=== PATIENT | male | born 1955 | race Caucasian/White ===

== ENCOUNTER 2019-03-05 00:41 | Inpatient (IN) ==
[2019-03-05] MEDS ORDERED: ONDANSETRON 4 MG/2 ML VIAL IV PRN (05:00)
[2019-03-05] MEDS ORDERED: traZODone 50 MG TABLET PO PRN (05:00)
[2019-03-05] MEDS ORDERED: ACETAMINOPHEN 325 MG TABLET PO PRN (05:00)
[2019-03-05] MEDS ORDERED: MORPHINE 4 MG/1 ML VIAL IV PRN (05:00)
[2019-03-05] MEDS ORDERED: ALBUTEROL/IPRATROPIUM 3 ML NEB RESP TX PRN (05:27)
[2019-03-05] MEDS: SODIUM CHLORIDE 0.9% 1,000 ML IV SCH ×2 (05:30→23:05)
[2019-03-05 05:35] LABS: Basophils % 0.3 % (0.0-0.8); Eosinophils % 0.1 % (0.00-10.9); Hematocrit 44.4 VOL% (42.0-52.0); Hemoglobin 14.7 GM/DL (14.0-18.0); Immature Granulocytes % 0.4 %; Immature Granulocytes Absolute 0.06 #; Lymphocytes # 2.6 10*3/uL (1.4-4.0); Lymphocytes % 18.3 % (21.2-54.2); Mean Corpuscular HGB Conc 33.1 GM/DL (32-36); Mean Corpuscular Volume 89.5 FL (87-102); Mean Platelet Volume 10.2 FL (9.6-12.0); Neutrophils % 73.9 % (38.7-73.9); Platelet Count 223 T/CUMM (130-400); Red Blood Count 4.96 MC/CUMM (3.8-5.5); Red Cell Distribution Width 13.6 % (9.3-17.3); White Blood Count 14.1 T/CUMM (4-12)
[2019-03-05 05:57] LABS: Albumin 3.7 G/DL (3.4-5.0); Bilirubin,Total 0.8 MG/DL (0.2-1.0); Calcium 9.3 MG/DL (8.5-10.1); Thyroid Stimulating Hormone 1.03 uIU/ml (0.358-3.74); Total Protein 7.2 G/DL (6.4-8.3)
[2019-03-05 05:58] LABS: Hematocrit 43.2 VOL% (42.0-52.0); Hemoglobin 14.5 GM/DL (14.0-18.0)
[2019-03-05] MEDS: PIPERACILLIN/TAZOBACTAM 3,375 MG in SODIUM CHLORIDE 0.9% 100 ML IV SCH ×3 (06:07→21:32)
[2019-03-05] MEDS ORDERED: BISACODYL 5 MG TABLET PO PRN (09:08)
[2019-03-05] MEDS ORDERED: MAGNESIUM HYDROXIDE SUSP 30 ML UDCUP PO PRN (09:08)
[2019-03-05] MEDS: POTASSIUM CHLORIDE 20 MEQ TABLET PO PRN ×2 (11:35→14:40)
[2019-03-05 11:36] LABS: Hematocrit 41.7 VOL% (42.0-52.0)
[2019-03-05] MEDS: PANTOPRAZOLE 40 MG VIAL IV SCH (11:38)
[2019-03-05] MEDS ORDERED: TUBERCULIN SKIN TEST 0.1 ML SYRINGE INTRADERM ONE (13:10)
[2019-03-05] MEDS: GABAPENTIN 300 MG CAPSULE PO SCH ×2 (14:39→21:00)
[2019-03-05 18:05] LABS: Hematocrit 40.8 VOL% (42.0-52.0); Hemoglobin 13.6 GM/DL (14.0-18.0)
[2019-03-05] MEDS: MORPHINE ER 30 MG TABLET PO SCH (21:00)
[2019-03-05] MEDS: FAMOTIDINE 20 MG TABLET PO SCH (21:00)
[2019-03-05] MEDS: levETIRAcetam 500 MG TABLET PO SCH (21:00)
[2019-03-06 01:00] LABS: Hemoglobin 13.4 GM/DL (14.0-18.0)
[2019-03-06] MEDS: SODIUM CHLORIDE 0.9% 1,000 ML IV SCH ×3 (03:36→22:51)
[2019-03-06] MEDS: PIPERACILLIN/TAZOBACTAM 3,375 MG in SODIUM CHLORIDE 0.9% 100 ML IV SCH ×3 (05:07→22:50)
[2019-03-06 05:24] LABS: Basophils # 0.1 10*3/uL (0.0-0.2); Basophils % 0.6 % (0.0-0.8); Eosinophils % 0.4 % (0.00-10.9); Hematocrit 40.1 VOL% (42.0-52.0); Hemoglobin 13.2 GM/DL (14.0-18.0); Immature Granulocytes % 0.5 %; Immature Granulocytes Absolute 0.05 #; Lymphocytes # 2.5 10*3/uL (1.4-4.0); Lymphocytes % 23.2 % (21.2-54.2); Mean Corpuscular HGB Conc 32.9 GM/DL (32-36); Mean Corpuscular Volume 90.5 FL (87-102); Mean Platelet Volume 10.1 FL (9.6-12.0); Monocytes % 6.1 % (1.7-12.7); Neutrophils % 69.2 % (38.7-73.9); Platelet Count 185 T/CUMM (130-400); Red Blood Count 4.43 MC/CUMM (3.8-5.5); Red Cell Distribution Width 13.6 % (9.3-17.3); White Blood Count 10.8 T/CUMM (4-12)
[2019-03-06 05:44] LABS: Calcium 8.7 MG/DL (8.5-10.1); Osmolality,Calculated 291.6 MOS/KG (273-304)
[2019-03-06 06:24] LABS: Apearance,Urine CLEAR (Clear); Bilirubin,Urine Negative (Negative); Blood, Urine Moderate mg/dL (Negative); Glucose,Urine (UA) Negative (Negative); Hyaline Casts,Urine 4 /LPF (0-3); Ketones,Urine 20 mg/dL (Negative); Mucus,Urine Occasional /LPF (Occasional); Nitrite,Urine Negative (Negative); Protein,Urine 30 MG/DL; RBC,Urine 11 /HPF (0-4); Squamous Epithelial Cell,Urine Occasional /HPF (0-10); Urine Color Yellow (Yellow); Urine Specific Gravity > 1.060 (1.001-1.035); Urine Urobilinogen < 2.0 EU/DL (0.2-1.0); WBC,Urine 5 /HPF (0-6)
[2019-03-06] MEDS ORDERED: LACTATED RINGERS 1,000 ML IV SCH (08:00)
[2019-03-06] MEDS ORDERED: LIDOCAINE 2% 5 ML VIAL ONE (10:00)
[2019-03-06] MEDS ORDERED: PROPOFOL 200 MG/20 ML VIAL IV ONE (10:00)
[2019-03-06] MEDS: levETIRAcetam 500 MG TABLET PO SCH ×2 (10:30→21:09)
[2019-03-06] MEDS: GABAPENTIN 300 MG CAPSULE PO SCH ×3 (10:31→21:09)
[2019-03-06] MEDS: MORPHINE ER 30 MG TABLET PO SCH ×2 (10:31→21:10)
[2019-03-06] MEDS: CITALOPRAM 40 MG TABLET PO SCH (10:31)
[2019-03-06] MEDS: ARIPiprazole 5 MG TABLET PO SCH (10:31)
[2019-03-06] MEDS: PANTOPRAZOLE 40 MG VIAL IV SCH (10:36)
[2019-03-06] MEDS: NICOTINE 14 MG/24 HR PATCH TRANSDERM SCH (16:11)
[2019-03-06] MEDS: CLOPIDOGREL 75 MG TABLET PO SCH (16:11)
[2019-03-06] MEDS: FAMOTIDINE 20 MG TABLET PO SCH (21:09)
[2019-03-06] MEDS: PANTOPRAZOLE 40 MG TABLET PO SCH (21:10)
[2019-03-07 05:28] LABS: Basophils # 0.1 10*3/uL (0.0-0.2); Basophils % 1.1 % (0.0-0.8); Eosinophils # 0.1 10*3/uL (0.0-0.87); Eosinophils % 0.9 % (0.00-10.9); Hematocrit 33.7 VOL% (42.0-52.0); Immature Granulocytes % 0.4 %; Immature Granulocytes Absolute 0.02 #; Lymphocytes # 2.2 10*3/uL (1.4-4.0); Lymphocytes % 41.8 % (21.2-54.2); Mean Corpuscular HGB Conc 32.3 GM/DL (32-36); Mean Corpuscular Volume 91.3 FL (87-102); Mean Platelet Volume 10.1 FL (9.6-12.0); Monocytes % 5.5 % (1.7-12.7); Neutrophils % 50.3 % (38.7-73.9); Red Blood Count 3.69 MC/CUMM (3.8-5.5); Red Cell Distribution Width 13.6 % (9.3-17.3)
[2019-03-07] MEDS: PIPERACILLIN/TAZOBACTAM 3,375 MG in SODIUM CHLORIDE 0.9% 100 ML IV SCH ×3 (05:35→21:29)
[2019-03-07 05:38] LABS: Hemoglobin 10.9 GM/DL (14.0-18.0); White Blood Count 5.3 T/CUMM (4-12)
[2019-03-07 05:39] LABS: Platelet Count 125 T/CUMM (130-400)
[2019-03-07 05:47] LABS: Calcium 8.1 MG/DL (8.5-10.1); Osmolality,Calculated 295.3 MOS/KG (273-304)
[2019-03-07] MEDS: POTASSIUM CHLORIDE 20 MEQ TABLET PO PRN ×2 (06:04→10:10)
[2019-03-07] MEDS: PANTOPRAZOLE 40 MG TABLET PO SCH ×2 (10:09→20:36)
[2019-03-07] MEDS: CITALOPRAM 40 MG TABLET PO SCH (10:10)
[2019-03-07] MEDS: levETIRAcetam 500 MG TABLET PO SCH ×2 (10:10→20:37)
[2019-03-07] MEDS: GABAPENTIN 300 MG CAPSULE PO SCH ×3 (10:10→20:36)
[2019-03-07] MEDS: MORPHINE ER 30 MG TABLET PO SCH ×2 (10:10→20:37)
[2019-03-07] MEDS: CLOPIDOGREL 75 MG TABLET PO SCH (10:10)
[2019-03-07] MEDS: SODIUM CHLORIDE 0.9% 1,000 ML IV SCH ×3 (10:11→21:20)
[2019-03-07] MEDS: NICOTINE 14 MG/24 HR PATCH TRANSDERM SCH (10:11)
[2019-03-07] MEDS: ARIPiprazole 5 MG TABLET PO SCH (10:21)
[2019-03-07] MEDS ORDERED: TUBERCULIN SKIN TEST 0.1 ML SYRINGE INTRADERM ONE (13:30)
[2019-03-07] MEDS: POTASSIUM CHLORIDE RIDER 10 MEQ in PREMIX 1 EACH IV PRN ×4 (14:10→18:29)
[2019-03-07] MEDS: FAMOTIDINE 20 MG TABLET PO SCH (20:37)
[2019-03-08 01:32] LABS: CDT Result Negative (Negative); CDT Specimen Source STOOL
[2019-03-08 05:36] LABS: Basophils % 0.7 % (0.0-0.8); Eosinophils # 0.2 10*3/uL (0.0-0.87); Eosinophils % 3.9 % (0.00-10.9); Hematocrit 35.1 VOL% (42.0-52.0); Hemoglobin 11.3 GM/DL (14.0-18.0); Immature Granulocytes % 0.5 %; Immature Granulocytes Absolute 0.02 #; Lymphocytes # 1.9 10*3/uL (1.4-4.0); Lymphocytes % 46.1 % (21.2-54.2); Mean Corpuscular HGB Conc 32.2 GM/DL (32-36); Mean Corpuscular Volume 91.4 FL (87-102); Mean Platelet Volume 10.8 FL (9.6-12.0); Monocytes % 5.2 % (1.7-12.7); Neutrophils % 43.6 % (38.7-73.9); Platelet Count 122 T/CUMM (130-400); Red Blood Count 3.84 MC/CUMM (3.8-5.5); Red Cell Distribution Width 13.6 % (9.3-17.3); White Blood Count 4.1 T/CUMM (4-12)
[2019-03-08] MEDS: PIPERACILLIN/TAZOBACTAM 3,375 MG in SODIUM CHLORIDE 0.9% 100 ML IV SCH (05:50)
[2019-03-08 08:34] VITALS: BP 133/62
[2019-03-08] MEDS: CITALOPRAM 40 MG TABLET PO SCH (08:51)
[2019-03-08] MEDS: ARIPiprazole 5 MG TABLET PO SCH (08:51)
[2019-03-08] MEDS: NICOTINE 14 MG/24 HR PATCH TRANSDERM SCH (08:51)
[2019-03-08] MEDS: GABAPENTIN 300 MG CAPSULE PO SCH (08:51)
[2019-03-08] MEDS: MORPHINE ER 30 MG TABLET PO SCH (08:51)
[2019-03-08] MEDS: CLOPIDOGREL 75 MG TABLET PO SCH (08:52)
[2019-03-08] MEDS: PANTOPRAZOLE 40 MG TABLET PO SCH (08:52)
[2019-03-08] MEDS: levETIRAcetam 500 MG TABLET PO SCH (08:52)
== END 2019-03-08 12:14 | DRG 378 ==
LOC: N.5E 02:10 → SUATTDRO 02:10
PROVIDERS: ADMIT Internal Medicine; ATTEND Internal Medicine Nephrology

== ENCOUNTER 2019-03-09 17:24 | Inpatient (IN) ==
[2019-03-09 18:11] LABS: Basophils % 0.4 % (0.0-0.8); Eosinophils % 0.4 % (0.00-10.9); Hematocrit 45.2 VOL% (42.0-52.0); Hemoglobin 15.3 GM/DL (14.0-18.0); Immature Granulocytes % 0.4 %; Immature Granulocytes Absolute 0.04 #; Lymphocytes # 2.3 10*3/uL (1.4-4.0); Lymphocytes % 22.6 % (21.2-54.2); Mean Corpuscular HGB Conc 33.8 GM/DL (32-36); Mean Corpuscular Volume 87.1 FL (87-102); Mean Platelet Volume 10.7 FL (9.6-12.0); Monocytes % 6.7 % (1.7-12.7); Neutrophils % 69.5 % (38.7-73.9); Platelet Count 212 T/CUMM (130-400); Red Blood Count 5.19 MC/CUMM (3.8-5.5); Red Cell Distribution Width 13.4 % (9.3-17.3)
[2019-03-09] MEDS ORDERED: ONDANSETRON 4 MG/2 ML VIAL IV PRN (18:54)
[2019-03-09] MEDS ORDERED: DOCUSATE SODIUM 100 MG CAPSULE PO PRN (18:54)
[2019-03-09] MEDS ORDERED: ACETAMINOPHEN 325 MG TABLET PO PRN (18:54)
[2019-03-09] MEDS ORDERED: LACTULOSE 20 GM/30 ML UDCUP PO PRN (18:54)
[2019-03-09] MEDS ORDERED: MAGNESIUM HYDROXIDE SUSP 30 ML UDCUP PO PRN (19:00)
[2019-03-09] MEDS ORDERED: ALBUTEROL/IPRATROPIUM 3 ML NEB RESP TX PRN (19:00)
[2019-03-09] MEDS ORDERED: BISACODYL 5 MG TABLET PO PRN (19:00)
[2019-03-09 19:30] LABS: Calcium 8.5 MG/DL (8.5-10.1); Osmolality,Calculated 286.7 MOS/KG (273-304)
[2019-03-09 19:43] LABS: CKMB % 10.3 %; Troponin I 3.6 NG/ML (0.00-0.045)
[2019-03-09 23:02] LABS: CKMB % 9.2 %
[2019-03-09] MEDS: GABAPENTIN 300 MG CAPSULE PO SCH (23:19)
[2019-03-09] MEDS: MORPHINE ER 30 MG TABLET PO SCH (23:21)
[2019-03-09] MEDS: PANTOPRAZOLE 40 MG TABLET PO SCH (23:21)
[2019-03-09 23:23] LABS: Troponin I 3.02 NG/ML (0.00-0.045)
[2019-03-09] MEDS: DOXYCYCLINE HYCLATE 100 MG CAPSULE PO SCH (23:23)
[2019-03-09] MEDS: levETIRAcetam 500 MG TABLET PO SCH (23:24)
[2019-03-09] MEDS: ENOXAPARIN 60 MG/0.6 ML SYRINGE SUBCUT SCH (23:57)
[2019-03-10] MEDS ORDERED: INFLUENZA VIRUS VACCINE 0.5 ML SYRINGE IM ONE (00:13)
[2019-03-10 05:08] LABS: Basophils # 0.1 10*3/uL (0.0-0.2); Basophils % 0.5 % (0.0-0.8); Eosinophils # 0.1 10*3/uL (0.0-0.87); Eosinophils % 0.8 % (0.00-10.9); Hematocrit 45.6 VOL% (42.0-52.0); Hemoglobin 15.5 GM/DL (14.0-18.0); Immature Granulocytes % 0.4 %; Immature Granulocytes Absolute 0.04 #; Lymphocytes # 2.6 10*3/uL (1.4-4.0); Lymphocytes % 24.5 % (21.2-54.2); Mean Corpuscular Volume 87.5 FL (87-102); Mean Platelet Volume 11.1 FL (9.6-12.0); Monocytes % 7.4 % (1.7-12.7); Neutrophils % 66.4 % (38.7-73.9); Platelet Count 209 T/CUMM (130-400); Red Blood Count 5.21 MC/CUMM (3.8-5.5); Red Cell Distribution Width 13.5 % (9.3-17.3); White Blood Count 10.8 T/CUMM (4-12)
[2019-03-10 05:46] LABS: Calcium 8.5 MG/DL (8.5-10.1); Osmolality,Calculated 279.4 MOS/KG (273-304)
[2019-03-10] MEDS ORDERED: SODIUM CHLORIDE 0.9% 1,000 ML IV ONE ×2 (08:22→13:45)
[2019-03-10] MEDS: cefTRIAXone 1,000 MG in SYRINGE 1 EACH IV SCH (10:18)
[2019-03-10] MEDS: NICOTINE 21 MG/24 HR PATCH TRANSDERM SCH (10:19)
[2019-03-10] MEDS: ENOXAPARIN 60 MG/0.6 ML SYRINGE SUBCUT SCH ×2 (10:19→21:45)
[2019-03-10] MEDS: ARIPiprazole 5 MG TABLET PO SCH (10:20)
[2019-03-10] MEDS: PANTOPRAZOLE 40 MG TABLET PO SCH ×2 (10:20→21:39)
[2019-03-10] MEDS: CLOPIDOGREL 75 MG TABLET PO SCH (10:20)
[2019-03-10] MEDS: ASPIRIN EC 325 MG TABLET PO SCH (10:20)
[2019-03-10] MEDS: GABAPENTIN 300 MG CAPSULE PO SCH ×3 (10:21→21:37)
[2019-03-10] MEDS: CITALOPRAM 40 MG TABLET PO SCH (10:24)
[2019-03-10] MEDS: levETIRAcetam 500 MG TABLET PO SCH ×2 (10:26→21:39)
[2019-03-10] MEDS: DOXYCYCLINE HYCLATE 100 MG CAPSULE PO SCH ×2 (10:26→21:39)
[2019-03-10] MEDS ORDERED: LISINOPRIL 10 MG TABLET PO SCH (12:00)
[2019-03-10] MEDS: MORPHINE ER 30 MG TABLET PO SCH ×2 (13:16→21:38)
[2019-03-10] MEDS: ATORVASTATIN 40 MG TABLET PO SCH (13:20)
[2019-03-11 04:45] LABS: Basophils % 0.6 % (0.0-0.8); Eosinophils # 0.2 10*3/uL (0.0-0.87); Eosinophils % 2.3 % (0.00-10.9); Hematocrit 33.4 VOL% (42.0-52.0); Hemoglobin 11.3 GM/DL (14.0-18.0); Immature Granulocytes % 0.3 %; Immature Granulocytes Absolute 0.02 #; Lymphocytes # 2.6 10*3/uL (1.4-4.0); Mean Corpuscular HGB Conc 33.8 GM/DL (32-36); Mean Corpuscular Volume 89.5 FL (87-102); Mean Platelet Volume 10.4 FL (9.6-12.0); Monocytes % 7.8 % (1.7-12.7); Platelet Count 138 T/CUMM (130-400); Red Blood Count 3.73 MC/CUMM (3.8-5.5); Red Cell Distribution Width 13.6 % (9.3-17.3); White Blood Count 6.8 T/CUMM (4-12)
[2019-03-11 05:08] LABS: Calcium 7.7 MG/DL (8.5-10.1); Osmolality,Calculated 285.8 MOS/KG (273-304)
[2019-03-11] MEDS: NICOTINE 21 MG/24 HR PATCH TRANSDERM SCH (09:09)
[2019-03-11] MEDS: ENOXAPARIN 60 MG/0.6 ML SYRINGE SUBCUT SCH ×2 (09:09→22:11)
[2019-03-11] MEDS: cefTRIAXone 1,000 MG in SYRINGE 1 EACH IV SCH (09:10)
[2019-03-11] MEDS: GABAPENTIN 300 MG CAPSULE PO SCH ×3 (09:10→22:04)
[2019-03-11] MEDS: CITALOPRAM 40 MG TABLET PO SCH (09:11)
[2019-03-11] MEDS: MORPHINE ER 30 MG TABLET PO SCH ×2 (09:11→22:05)
[2019-03-11] MEDS: ASPIRIN EC 325 MG TABLET PO SCH (09:11)
[2019-03-11] MEDS: ATORVASTATIN 40 MG TABLET PO SCH (09:11)
[2019-03-11] MEDS: levETIRAcetam 500 MG TABLET PO SCH ×2 (09:11→22:06)
[2019-03-11] MEDS: PANTOPRAZOLE 40 MG TABLET PO SCH ×2 (09:11→22:05)
[2019-03-11] MEDS: ARIPiprazole 5 MG TABLET PO SCH (09:11)
[2019-03-11] MEDS: DOXYCYCLINE HYCLATE 100 MG CAPSULE PO SCH ×2 (09:11→22:07)
[2019-03-11] MEDS: CLOPIDOGREL 75 MG TABLET PO SCH (09:12)
[2019-03-11] MEDS ORDERED: POTASSIUM CHLORIDE 20 MEQ TABLET PO PRN (11:11)
[2019-03-11] MEDS ORDERED: POTASSIUM CHLORIDE RIDER 10 MEQ in PREMIX 1 EACH IV PRN (11:23)
[2019-03-11] MEDS ORDERED: MAGNESIUM SULF RIDER 2 GM in PREMIX 1 EACH IV PRN (11:23)
[2019-03-11] MEDS ORDERED: POTASSIUM CHLORIDE 20 MEQ TABLET PO ONE ×2 (11:51→21:00)
[2019-03-11 13:03] LABS: INR 1.1; PT Patient Result 11.9 SECS (9.6-12.2)
[2019-03-12 04:36] LABS: Basophils % 0.7 % (0.0-0.8); Eosinophils # 0.2 10*3/uL (0.0-0.87); Eosinophils % 3.2 % (0.00-10.9); Hematocrit 35.2 VOL% (42.0-52.0); Hemoglobin 11.4 GM/DL (14.0-18.0); Immature Granulocytes % 0.3 %; Immature Granulocytes Absolute 0.02 #; Lymphocytes # 1.9 10*3/uL (1.4-4.0); Lymphocytes % 32.3 % (21.2-54.2); Mean Corpuscular HGB Conc 32.4 GM/DL (32-36); Mean Corpuscular Volume 91.9 FL (87-102); Mean Platelet Volume 10.9 FL (9.6-12.0); Monocytes % 8.7 % (1.7-12.7); Neutrophils % 54.8 % (38.7-73.9); Platelet Count 148 T/CUMM (130-400); Red Blood Count 3.83 MC/CUMM (3.8-5.5); Red Cell Distribution Width 13.9 % (9.3-17.3)
[2019-03-12 05:02] LABS: Albumin 2.5 G/DL (3.4-5.0); Bilirubin,Total 0.6 MG/DL (0.2-1.0); Calcium 8.1 MG/DL (8.5-10.1); Osmolality,Calculated 285.8 MOS/KG (273-304); Total Protein 5.1 G/DL (6.4-8.3)
[2019-03-12] MEDS: NICOTINE 21 MG/24 HR PATCH TRANSDERM SCH (09:18)
[2019-03-12] MEDS: cefTRIAXone 1,000 MG in SYRINGE 1 EACH IV SCH (09:18)
[2019-03-12] MEDS: GABAPENTIN 300 MG CAPSULE PO SCH ×3 (09:19→21:38)
[2019-03-12] MEDS: ARIPiprazole 5 MG TABLET PO SCH (09:19)
[2019-03-12] MEDS: PANTOPRAZOLE 40 MG TABLET PO SCH ×2 (09:20→21:39)
[2019-03-12] MEDS: CLOPIDOGREL 75 MG TABLET PO SCH (09:20)
[2019-03-12] MEDS: levETIRAcetam 500 MG TABLET PO SCH ×2 (09:20→21:39)
[2019-03-12] MEDS: DOXYCYCLINE HYCLATE 100 MG CAPSULE PO SCH ×2 (09:20→21:38)
[2019-03-12] MEDS: ASPIRIN EC 325 MG TABLET PO SCH (09:20)
[2019-03-12] MEDS: ATORVASTATIN 40 MG TABLET PO SCH (09:20)
[2019-03-12] MEDS: MORPHINE ER 30 MG TABLET PO SCH ×2 (09:20→21:39)
[2019-03-12] MEDS: CITALOPRAM 40 MG TABLET PO SCH (09:22)
[2019-03-12] MEDS ORDERED: HEPARIN/NACL 0.9% 2 UNITS/ML 500 ML IV ONE ×3 (11:23→11:47)
[2019-03-12] MEDS ORDERED: LIDOCAINE 1% 20 ML VIAL ONE (11:23)
[2019-03-12] MEDS ORDERED: diphenhydrAMINE CAP 25 MG CAPSULE PO ONE (11:23)
[2019-03-12] MEDS ORDERED: DIAZEPAM 5 MG TABLET PO ONE (11:23)
[2019-03-12] MEDS ORDERED: fentaNYL 100 MCG/2 ML VIAL ONE (11:53)
[2019-03-12] MEDS ORDERED: MIDAZOLAM 2 MG/2 ML VIAL ONE (11:53)
[2019-03-12] MEDS ORDERED: NITROGLYCERIN DRIP 50 MG/250 ML BOTTLE IV ONE (12:02)
[2019-03-12] MEDS ORDERED: HEPARIN 5,000 UNIT/1 ML VIAL ONE (12:02)
[2019-03-12] MEDS ORDERED: SODIUM CHLORIDE 0.9% 1,000 ML IV SCH (13:00)
[2019-03-12] MEDS ORDERED: NITROGLYCERIN SL 0.4 MG TABLET SL PRN (13:36)
[2019-03-13 03:56] LABS: Basophils % 0.8 % (0.0-0.8); Eosinophils # 0.2 10*3/uL (0.0-0.87); Eosinophils % 4.1 % (0.00-10.9); Hematocrit 32.9 VOL% (42.0-52.0); Hemoglobin 10.7 GM/DL (14.0-18.0); Immature Granulocytes % 0.4 %; Immature Granulocytes Absolute 0.02 #; Lymphocytes # 1.6 10*3/uL (1.4-4.0); Lymphocytes % 31.9 % (21.2-54.2); Mean Corpuscular HGB Conc 32.5 GM/DL (32-36); Mean Corpuscular Volume 92.2 FL (87-102); Mean Platelet Volume 10.6 FL (9.6-12.0); Monocytes % 9.9 % (1.7-12.7); Neutrophils % 52.9 % (38.7-73.9); Platelet Count 150 T/CUMM (130-400); Red Blood Count 3.57 MC/CUMM (3.8-5.5); Red Cell Distribution Width 13.7 % (9.3-17.3); White Blood Count 4.9 T/CUMM (4-12)
[2019-03-13 04:25] LABS: Calcium 7.8 MG/DL (8.5-10.1)
[2019-03-13] MEDS ORDERED: MAGNESIUM SULF RIDER 4 GM in PREMIX 1 EACH IV PRN (07:21)
[2019-03-13] MEDS ORDERED: MAGNESIUM SULF RIDER 2 GM in PREMIX 1 EACH IV PRN (07:21)
[2019-03-13] MEDS: ARIPiprazole 5 MG TABLET PO SCH (08:41)
[2019-03-13] MEDS: PANTOPRAZOLE 40 MG TABLET PO SCH ×2 (08:41→21:20)
[2019-03-13] MEDS: MORPHINE ER 30 MG TABLET PO SCH (08:42)
[2019-03-13] MEDS: DOXYCYCLINE HYCLATE 100 MG CAPSULE PO SCH ×2 (08:42→21:19)
[2019-03-13] MEDS: ATORVASTATIN 40 MG TABLET PO SCH (08:43)
[2019-03-13] MEDS: cefTRIAXone 1,000 MG in SYRINGE 1 EACH IV SCH (08:43)
[2019-03-13] MEDS: levETIRAcetam 500 MG TABLET PO SCH ×2 (08:43→21:19)
[2019-03-13] MEDS: ASPIRIN EC 325 MG TABLET PO SCH (08:46)
[2019-03-13] MEDS: GABAPENTIN 300 MG CAPSULE PO SCH ×3 (09:15→21:19)
[2019-03-13] MEDS: NICOTINE 21 MG/24 HR PATCH TRANSDERM SCH (09:15)
[2019-03-13] MEDS: CITALOPRAM 40 MG TABLET PO SCH (09:15)
[2019-03-13] MEDS: MORPHINE ER 15 MG TABLET PO SCH ×2 (13:11→21:19)
[2019-03-13] MEDS: MEGESTROL 40 MG TABLET PO SCH ×2 (15:56→21:20)
[2019-03-13] MEDS: SODIUM CHLORIDE 0.9% 1,000 ML IV SCH (16:00)
[2019-03-14 06:19] LABS: Basophils % 0.6 % (0.0-0.8); Eosinophils # 0.2 10*3/uL (0.0-0.87); Eosinophils % 3.5 % (0.00-10.9); Hematocrit 34.5 VOL% (42.0-52.0); Hemoglobin 11.4 GM/DL (14.0-18.0); Immature Granulocytes % 0.2 %; Immature Granulocytes Absolute 0.01 #; Lymphocytes # 1.9 10*3/uL (1.4-4.0); Lymphocytes % 37.9 % (21.2-54.2); Mean Corpuscular Volume 91.5 FL (87-102); Mean Platelet Volume 10.8 FL (9.6-12.0); Monocytes % 8.6 % (1.7-12.7); Neutrophils % 49.2 % (38.7-73.9); Platelet Count 154 T/CUMM (130-400); Red Blood Count 3.77 MC/CUMM (3.8-5.5); Red Cell Distribution Width 13.6 % (9.3-17.3); White Blood Count 5.1 T/CUMM (4-12)
[2019-03-14 06:54] LABS: Osmolality,Calculated 281.1 MOS/KG (273-304)
[2019-03-14] MEDS: cefTRIAXone 1,000 MG in SYRINGE 1 EACH IV SCH (08:42)
[2019-03-14] MEDS: PANTOPRAZOLE 40 MG TABLET PO SCH (08:43)
[2019-03-14] MEDS: ATORVASTATIN 40 MG TABLET PO SCH (08:43)
[2019-03-14] MEDS: GABAPENTIN 300 MG CAPSULE PO SCH (08:43)
[2019-03-14] MEDS: MEGESTROL 40 MG TABLET PO SCH (08:43)
[2019-03-14] MEDS: MORPHINE ER 15 MG TABLET PO SCH (08:43)
[2019-03-14] MEDS: ASPIRIN EC 325 MG TABLET PO SCH (08:44)
[2019-03-14] MEDS: ARIPiprazole 5 MG TABLET PO SCH (08:44)
[2019-03-14] MEDS: levETIRAcetam 500 MG TABLET PO SCH (08:44)
[2019-03-14] MEDS: DOXYCYCLINE HYCLATE 100 MG CAPSULE PO SCH (08:44)
[2019-03-14] MEDS: CITALOPRAM 40 MG TABLET PO SCH (08:47)
[2019-03-14] MEDS: NICOTINE 21 MG/24 HR PATCH TRANSDERM SCH (08:48)
[2019-03-14] MEDS ORDERED: amLODIPine 2.5 MG TABLET PO SCH (09:00)
[2019-03-14 11:24] VITALS: BP 85/58
[2019-03-14] MEDS: SODIUM CHLORIDE 0.9% 1,000 ML IV SCH (11:39)
== END 2019-03-14 11:52 | disposition home or self-care (01) | DRG 280 ==
LOC: EDBD → EDUNIT# → N.ED 17:24 → N.EDINP 18:53 → N.TELEN 19:56
PROVIDERS: ADMIT Internal Medicine; ATTEND Internal Medicine
PROC: CLCCHCL (ICD-10-PCS; 2019-03-12 11:45)